=== PATIENT | female | born 1960 | race African-American/Black ===

== ENCOUNTER → 2020-05-08 15:57 | Outpatient (BNV) | payer OTHER, SELFPAY | PROVIDERS: PCP Internal Medicine; Visit Provider Internal Medicine | DX: D59.10 Autoimmune hemolytic anemia, unspecified (principal) | CPT/HCPCS: 38222; 99213; 99214 ==

== ENCOUNTER 2020-05-28 11:22 | Day surgery (SDC) | payer OTHER, SELFPAY ==
[2020-05-23 13:03] VITALS: BMI 44.9
[2020-05-27 08:50] VITALS: BMI 44.1
[2020-05-28 11:50] VITALS: BP 129/55; PULSE 66; RESP 18; TEMP 36.3; O2SAT 99
--- NOTE | 2020-05-28 12:43 | HO.ANESPROP2 ---
HPI - Anesthesia Eval Consult details Narrative: 59 yo female patient here for bone marrow biopsy PMFSH Past Medical History Medical History (Updated 05/28/20 @ 13:00 by Ariana Olvera) GERD (gastroesophageal reflux disease) IgG lambda monoclonal gammopathy Increased BMI Knee pain, right Macrocytic anemia Right knee meniscal tear Family History Family History Mother Colorectal cancer Father Lung cancer Brother Diabetes Sister Seizure disorder Family history of problems with anesthesia: No Surgical History Surgical History History of colonoscopy History of lumpectomy of left breast History of Problems with Anesthesia: No Social History Social History (Updated 05/28/20 @ 12:55 by Ariana Olvera) Alcohol intake: current Alcohol intake frequency: holidays/special occasions only Alcohol type: wine Smoking Status: Current every day smoker Tobacco Type: Cigarette Packs Per Day: 0.5 Cigarettes Per Day: 10 Years Smoked: 41 Smoked in Last 30 Days: Yes Use of substances other than those prescribed or required for medical reasons: No Advance Directives: No Advance Directives Information Provided: No Advance Directives on File: No Meds Allergies Allergy/AdvReac Type Severity Reaction Status Date / Time No Known Allergies Allergy Verified 05/27/20 09:00 [No Known Allergies*] Home Medications Medication Instructions Recorded Confirmed Type ferrous sulfate 7.5 mg PO DAILY 05/08/20 05/28/20 History folic acid 0.4 mg PO DAILY 05/08/20 05/28/20 History omeprazole 20 mg PO BID 05/08/20 05/28/20 History prednisone 40 mg PO DAILY 05/08/20 05/28/20 History Exam Exam Date and Time: May 28, 2020 1243 Height,Weight and Vital Signs: Height 5 ft 1 in Weight 106.141 kg Last Vital Signs Temp 97.4 F 05/28/20 11:50 Pulse 66 05/28/20 11:50 Resp 18 05/28/20 11:50 BP 129/55 L 05/28/20 11:50 Pulse Ox 99 05/28/20 11:50 Airway Mallampati Class: III TM Dist: >3cm Neck ROM: Full Heart: RRR WITH EXTRA BEATS EKG-SINUS ARRHYTHMIA. FREQUENT PACS Lungs: CTAB Assessment and Plan Assessment Anesthesia Assessment: Anesthesia Plan Discussed and Chart Reviewed Final Anesthetic Review NPO: Yes ASA Class: III Final Preanesthetic Review: No Changes in Pt Med Stat, Meds/Allgs Chart Reviewed and Anes Risks/Benef Reviewed Patient Risk: Intermediate Procedure Risk: Low Anesthetic Plan Anesthetic Plan: MAC: Disposition: Standard PACU
[2020-05-28] MEDS: Lactated Ringers 1,000 ML 50 ML IVCONT (13:06)
[2020-05-28 13:40] VITALS: BP 122/74; PULSE 66; RESP 12; TEMP 36.2; O2SAT 100
--- NOTE | 2020-05-28 13:45 | PM.HEMONCBM ---
Bone Marrow Aspiration - Bone Marrow Aspiration Procedure:: *Service Date: [05/28/20] Bone marrow aspiration/biopsy Pre Op Diagnosis:: Monoclonal gammopathy, hemolytic anemia Post Op Diagnosis:: Monoclonal gammopathy, hemolytic anemia Surgeon:: Negrita Viveros MD Anesthesia:: Mac and local anesthesia Consent:: Informed consent obtained from the patient for the procedure. Pros and cons of biopsy explained. The patient was willing to proceed with the procedure under monitored anesthesia. Procedure in Detail:: *Service Date: [f_Mis Current Date] *Procedure: [] *Pre Op Dx: [] *Post Op Dx: [] *Surgeon: [f_Current User] The patient was positioned prone and the left posterior superior iliac spine prepped and draped. Under aseptic precautions, 10 mL ml of 1% lidocaine used for local anesthesia. With the Jamshidi needle, 10 cc of aspirate and 1 cm core biopsy obtained without any complications. The patient tolerated the procedure well. Bandage was applied and patient was positioned on back for 10 to 15 minutes after the procedure. The patient was advised to call us if she develops any pain or swelling at the surgical site. Follow up in 2 weeks.
[2020-05-28 13:55] VITALS: BP 134/58; PULSE 66; RESP 14; O2SAT 99
[2020-05-28 14:10] VITALS: BP 129/73; PULSE 73; RESP 16; O2SAT 99
[2020-05-28] MEDS: Acetaminophen 325 MG TABLET 650 MG PO (14:17)
--- NOTE | 2020-05-28 14:40 | HO.POSTANES ---
Post Anesthesia Evaluation Post Anesthesia Evaluation Vital Signs: Vital Signs Temp Pulse Resp BP Pulse Ox 05/28/20 14:10 73 16 129/73 99 05/28/20 13:55 66 14 134/58 L 99 05/28/20 13:40 97.2 F 66 12 122/74 100 05/28/20 11:50 97.4 F 66 18 129/55 L 99 Anesthesia: Monitored Mental Status: Awake Pain Control: Satisfactory Nausea/Vomiting: None Hydration: Adequate Anesthesia-Related Issues: No Anes. Related Issues
[2020-05-28 15:08] LABS: Bone Marrow SEE SEPARATE REPORT
[2020-05-29 17:07] LABS: LLE Markers 23
[2020-05-30 08:58] LABS: LLE Sample Description SEE ABOVE
[2020-05-30 09:00] LABS: LLE Report Type SEE ABOVE
[2020-06-01 16:57] LABS: B Cell IGH Result Positive; Clinical Indication Not Provided
== END 2020-05-28 14:25 | disposition home or self-care (01) ==
PROVIDERS: PCP Internal Medicine; Visit Provider Internal Medicine
PROC: (CPT 38221; principal; 2020-05-28 13:00)
DX: D53.9 Nutritional anemia, unspecified (principal); D47.2 Monoclonal gammopathy; Z79.52 Long term (current) use of systemic steroids; Z79.899 Other long term (current) drug therapy; F17.210 Nicotine dependence, cigarettes, uncomplicated
CPT/HCPCS: 38222; 36415; 81261; 84999; 85097; 88184; 88185; 88189; 88237; 88264; 88271; 88275; 88305; 88307; 88311; 88313; 88342; 88344; J1100; J2250; J3010

== ENCOUNTER → 2020-08-22 10:35 | Outpatient (BNVA) | payer OTHER, SELFPAY | PROVIDERS: PCP Internal Medicine; Visit Provider Internal Medicine | DX: R06.02 Shortness of breath (principal); R07.2 Precordial pain; R03.0 Elevated blood-pressure reading, without diagnosis of hypertension; F17.200 Nicotine dependence, unspecified, uncomplicated | CPT/HCPCS: 93005 ==

== ENCOUNTER → 2020-10-02 07:56 | Outpatient (REF) | payer OTHER, SELFPAY ==
--- NOTE | ~2020-10-02 | NM_ITS ---
Myocardial perfusion study Indication: Shortness of breath evaluate for myocardial ischemia Technique: The patient was brought in for a Lexiscan perfusion study on 10/02/2020. Patient performed low-level exercise and was injected 0.4 mg of Lexiscan intravenously. Within a minute of injection, 40 mCi of sestamibi was given intravenously. Images were obtained using the SPECT gamma camera interlaced with the gating device. Images were obtained in supine position. Resting perfusion study was performed on 10/03/2020. Patient was administered 40 mCi of sestamibi intravenously at rest. Images were then obtained in supine position. Images obtained with and without CT attenuation. Total DLP 99 mGy-cm. Images were processed with the software and compared side to side in short axis, horizontal long axis and vertical long axis views. Findings: The stress perfusion study showed non attenuated images show normal uptake of radiotracer in all segments of LV myocardium. Attenuation corrected images show mildly reduced uptake in the apex of the LV myocardium. The gated study shows normal LV systolic function with calculated LVEF of 69%. LV cavity is normal in size. The gated study shows normal systolic wall thickening and contraction of segments. Resting study shows no change in perfusion in compared to stress perfusion study. Gating at rest reveals normal systolic wall motion with ejection fraction at 57%. The findings are consistent with normal myocardial perfusion. NM/NM cardiolite stress test Impression: 1. Myocardial perfusion imaging study shows normal myocardial perfusion 2. Gated LVEF is 69% 3. Transient ischemic dilatation not present EKG is nondiagnostic for ischemia
--- NOTE | 2020-10-02 08:00 | CA_ITS ---
Transthoracic Echocardiogram Patient (Last, First, Middle): Shelly Almendarez E Gender: Female Date of : 1960 Age: 60 Procedure Date: 10/02/2020 Procedure Type: Transthoracic Echocardiogram Location: OP Height: 154.94 cm Weight: 113.63 kg BSA: 2.08 m2 Heart Rate: bpm BP: 127 / 80 mmHg Valuation Consultant: Referring MD: Anatoliy Monzon MD Symptoms: R06.02 - Shortness of breath Study Quality: Fair ECG Rhythm: Sinus Conclusions: - The left ventricular systolic function is normal. The visually estimated ejection fraction is between 60-65%. - No obvious valvular pathology seen on this study. Findings Left Ventricle Normal left ventricular cavity size. There is mildly increased left ventricular wall thickness. The left ventricular systolic function is normal. The visually estimated ejection fraction is between 60-65%. There is no evidence of regional wall motion abnormalities. Diastolic function is normal for age. Right Ventricle Normal right ventricular cavity size and systolic function. Atria The left atrium is normal in size. The right atrium is normal in size. Aortic Valve There is a normal trileaflet aortic valve. There is no aortic valve stenosis. There is no aortic valve regurgitation. Mitral Valve The mitral valve appears normal. There is trace mitral valve regurgitation. There is no mitral valve stenosis. Pulmonic Valve The pulmonic valve was not well visualized. Tricuspid Valve Normal tricuspid valve structure. There is trace tricuspid valve regurgitation. The pulmonary artery systolic pressure is normal. Great Vessels The aortic annulus, sinuses of valsalva, and asc aorta are normal in size. Venous The inferior vena cava is normal in size and collapses greater than 50% with inspiration. Pericardium/Pleural There is no evidence of pericardial effusion. Prior Study Comparison No prior study available for comparison. Recommendations, Care & Conclusions No obvious valvular pathology seen on this study. Measurements 2D Linear Measurements IVSd: 1.11 0.6-0.9/0.6-1.0 cm LVIDd: 4.34 3.9-5.3/4.2-5.9 cm LVIDd Index: 2.09 2.4-3.2/2.2-3.1 cm/m2 LVIDs: 2.74 2.0-3.6 cm LVPWd: 1.05 0.7-1.1 cm Ao Root: 2.90 2.1-3.5 cm LA Diam: 4.10 2.7-3.8/3.0-4.0 cm LAIDs Index: 1.97 1.5-2.3 cm/m2 LV Mass: 200.59 67-162/88-224 g LV Mass Index: 96.44 43-95/49-115 g/m2 LVOT Diam: 2.00 3.0+(-)1.3 cm Mitral Valve MV VTI: 0.39 MV Pk Chetan: 1.16 MV Mn Chetan: 0.67 MV Pk Grad: 5.00 MV Mn Grad: 2.00 MV Pk E: 0.90 MV PK A: 0.89 MV Decel Time: 183.00 E/A: 1.00 E'Lateral: 11.90 E'Medial: 10.40 E/E' Med: 8.60 E/E' Lat: 7.50 PHT: 54.00 MVA PHT: 4.07 MVA Continuity: 1.91 Decel Kerr: 5.99 Aortic Valve AoV Pk Chetan: 1.63 AoV Mn Chetan: 0.99 AoV VTI: 0.33 AoV Pk Grad: 11.00 Aov Mn Grad: 5.00 AUTUMN Cont.VTI: 2.26 LVOT LVOT Pk Chetan: 1.08 LVOT Mn Chetan: 0.72 LVOT VTI: 0.24 LVOT Pk Grad: 5.00 LVOT Mn Grad: 3.00 LVOT Diam: 2.00 LVOT Area: 3.14 Diastolic Function MV Pk E: 0.90 MV Pk A: 0.89 E/A: 1.00 E'Medial: 10.40 E/E' Med: 8.60 E' Laterial: 11.90 E/E' Lat: 7.50 Tricuspid Valve TR Pk Chetan: 1.80 TR Pk Grad: 13.00 Great Vessels Aorta Ao Root-2D: 2.90 2.0-3.7 cm Ao Asc: 2.90 2.1-3.4 cm Pulmonary Valve PV Pk Chetan: 1.09 Peak PV Grad: 5.00 Updated in Other Vendor System with Status of Final Anatoliy Monzon MD electronically signed on 10/03/2020 12:18:58 PM with status of Final
--- NOTE | 2020-10-02 08:00 | CA_ITS ---
Acquisition Time: 2020-10-02 08:22:35 Total Exercise Time: 00:02:08 Test Indications: Dyspnea Medications: PREDNISONE OMEPRAZOLE IRON Protocol: RHIANNA Max HR: 113 BPM 70% of Pred: 161 BPM Max BP: 190/090 mmHG Max Work Load: 4.6 METS Pharmacological stress test using Lexiscan while sitting and kicking her feet. Pt tolerated well. Denies any anginal sx. EKG with PAC's before the injection, non-diagnostic for ischemia. Nuclear images to follow. Normotensive response to tewst. Test reviewed with Dr. Monzon. Pt's test switched to pharmacological as pt unable to walk on the treadmill d/t SOB. Pt asked to terminate the Rhianna protocol. test Referred By: Anatoliy Monzon Overread By: Raina Hameed NP
== END ==
LOC: HO.CARD 07:56
PROVIDERS: Visit Provider Internal Medicine
DX: R07.2 Precordial pain (principal); R06.02 Shortness of breath
CPT/HCPCS: 78452; 93016; 93017; 93018; 93306; A9500; J0280; J2785

== ENCOUNTER → 2020-10-15 15:01 | Outpatient (BNVA) | payer OTHER, SELFPAY | PROVIDERS: PCP Internal Medicine; Visit Provider Internal Medicine ==

== ENCOUNTER → 2021-03-13 15:04 | Outpatient (BNVA) | payer OTHER, SELFPAY | PROVIDERS: PCP Internal Medicine; Visit Provider Hospitalist ==

== ENCOUNTER 2021-04-01 16:02 | Outpatient (REF) | payer OTHER, SELFPAY ==
--- NOTE | 2021-04-01 17:38 | PFT_ITS ---
Forced vital capacity, FEV1, [id number] were normal. MVV slightly decreased, but improved to normal after bronchodilator therapy. Total lung capacity and residual volume normal. Diffusion capacity slightly decreased. CONCLUSION: Normal pulmonary function test. No evidence of obstructive or restrictive pulmonary disorder. Clinical correlation recommended. MD JACKIE Anand/MARIELENAL / [id number]
== END 2021-04-01 16:03 | disposition home or self-care (01) ==
LOC: HO.RESP 16:02
PROVIDERS: Visit Provider Hospitalist
DX: J44.9 Chronic obstructive pulmonary disease, unspecified (principal)
CPT/HCPCS: 94060; 94727; 94729

== ENCOUNTER 2021-04-11 15:39 | Outpatient (REF) | payer OTHER, SELFPAY ==
--- NOTE | ~2021-04-11 | CT_ITS ---
EXAMINATION: CT CHEST SCREENING CLINICAL INFORMATION: Current smoker. 42 year history. COMPARISON: Previous chest x-ray September 2019 TECHNIQUE: Multidetector volumetric CT imaging of the chest is performed without contrast using low dose technique. Additional 2D coronal and sagittal reformatted images and axial 3D maximum intensity projection (MIP) images are generated on the CT workstation. This CT examination was performed using dose optimization techniques as appropriate, variously including the following: *Automated exposure control *Adjustment of mA and/or kV according to patient size (this includes techniques or standardized protocols for targeted exams where dose is matched to indication/reason for exam; i.e. extremities or head) *Use of iterative reconstruction technique DLP: 109 mGy-cm FINDINGS: LUNGS: Exam is somewhat limited due to low dose film technique. There is a heterogeneous partially groundglass attenuation partially cystic lesion in the anterior segment of the right upper lobe. This measures 1.3 x 2 cm in AP and transverse dimension, axial image 106 series 6 and axial image 30 series 9. There is adjacent pleural thickening. There is an adjacent heterogeneous partially groundglass partially cystic more medial inferior lesion measuring 0.9 x 1.1 cm axial image 18 series 5. There is a adjacent more lateral and posterior heterogeneous predominantly groundglass attenuation or semisolid right upper lobe nodule measuring 5 x 6 mm axial image 105 series 6. There is a heterogeneous partially groundglass attenuation partially cystic superior segment left lower lobe nodule. This measures 1.4 x 2.1 cm axial image 148 series 6 and axial image 43 series 9. There is evidence of mild paraseptal emphysema. There is a 1 x 2 cm cyst in the left upper lobe axial image 30 series 5. MEDIASTINUM: The mediastinum is normal. PLEURA: There is no pleural effusion. No pleural mass or thickening. AXILLA: No lymphadenopathy. UPPER ABDOMEN: Unremarkable OSSEOUS STRUCTURES: There are degenerative changes of the spine. CT/CT lung screening IMPRESSION: Heterogeneous partially groundglass partially cystic lesions in the right upper and left lower lobes. ASSESSMENT: Lung-RADS category 3: Probably Benign RECOMMENDATION: Six-month low-dose chest CT follow-up recommended.
== END 2021-04-11 15:40 | disposition home or self-care (01) ==
LOC: HO.CT 15:39
PROVIDERS: PCP Internal Medicine; Visit Provider Physician Assistant Medical
DX: Z12.2 Encounter for screening for malignant neoplasm of respiratory organs (principal); F17.210 Nicotine dependence, cigarettes, uncomplicated
CPT/HCPCS: 71271; G0296

== ENCOUNTER → 2021-04-29 15:42 | Outpatient (BNVA) | payer OTHER, SELFPAY | PROVIDERS: PCP Internal Medicine; Visit Provider Hospitalist ==

== ENCOUNTER → 2021-07-17 15:11 | Outpatient (BNVA) | payer OTHER, SELFPAY | PROVIDERS: PCP Internal Medicine; Referring Provider Internal Medicine; Visit Provider Internal Medicine | DX: R06.02 Shortness of breath (principal); R03.0 Elevated blood-pressure reading, without diagnosis of hypertension; E66.01 Morbid (severe) obesity due to excess calories; F17.210 Nicotine dependence, cigarettes, uncomplicated; M79.89 Other specified soft tissue disorders; Z68.42 Body mass index [BMI] 45.0-49.9, adult | CPT/HCPCS: 93005 ==

== ENCOUNTER 2021-08-30 08:35 | Outpatient (REF) | payer OTHER, SELFPAY ==
[2021-09-01 12:45] LABS: PES - Abn Protein Band 1 0.3 g/dL (NONE DETECTED); Prot Elec - Albumin 4.3 g/dL (3.8-4.8); Prot Elec - Alpha1 0.4 g/dL (0.2-0.3); Prot Elec - Alpha2 0.5 g/dL (0.5-0.9); Prot Elec - Beta 1 0.4 g/dL (0.4-0.6); Prot Elec - Beta 2 0.3 g/dL (0.2-0.5); Prot Elec - Total Protein 7.8 g/dL (6.1-8.1)
[2021-09-01 19:06] LABS: Haptoglobin <8 mg/dL (43-212)
[2021-09-04 00:36] LABS: Kappa Light Chain, Free Serum 54.2 mg/L (3.3-19.4); Kappa/Lambda Lt Ch Free Ratio 0.64 (0.26-1.65); Lambda Light Chain, Free Serum 84.5 mg/L (5.7-26.3)
[2021-09-04 10:11] LABS: IgA 167 mg/dL (47-310); IgG 1684 mg/dL (600-1640); IgM 939 mg/dL (50-300)
== END 2021-08-30 08:36 | disposition home or self-care (01) ==
LOC: HO.LAB 08:35
PROVIDERS: PCP Internal Medicine; Visit Provider Internal Medicine
DX: D58.9 Hereditary hemolytic anemia, unspecified (principal)
CPT/HCPCS: 36415; 82232; 82784; 83010; 83521; 84165; 86334; 86880; 88184; 88185

== ENCOUNTER 2021-10-01 17:00 | Outpatient (REF) | payer OTHER, SELFPAY ==
[2021-10-01 17:10] LABS: MANUAL DIFF FLAG NO
[2021-10-01 17:25] LABS: Basophils Percent Auto 0.2 % (0-2); Eosinophils Absolute Auto 0.1 X10*3/uL (0.0-0.4); Eosinophils Percent Auto 1.4 % (0-4); Hematocrit 31.9 % (37.0-47.0); Hemoglobin 11.5 g/dl (12.0-16.0); Imm Gran Abs Auto 0.04 X10*3/uL (0.00-0.03); Imm Gran Pct Auto 0.6 % (0.0-0.4); Lymphocytes Absolute Auto 2.2 X10*3/uL (1.2-4.9); Mean Corpuscular HGB Conc 36.1 g/dl (31.0-35.0); Mean Corpuscular Hemoglobin 36.4 pg (27.0-33.0); Mean Corpuscular Volume 100.9 fL (80.0-98.0); Mean Platelet Volume 9.8 fL (9.4-12.3); Monocytes Absolute Auto 0.5 X10*3/uL (0.1-1.2); Monocytes Percent Auto 7.1 % (2-11); Neutrophils Absolute Auto 3.7 x10*3/uL (2.0-8.3); Neutrophils Percent Auto 56.7 % (45-73); Platelet Count 199 X10*3/uL (160-400); Red Blood Count 3.16 X10*6/uL (4.20-5.50); Red Cell Distribution Width 17.6 % (11.0-16.0); White Blood Count 6.6 X10*3/uL (4.8-10.8)
[2021-10-01 18:00] LABS: Alanine Aminotransferase 15 U/L (0-31); Albumin Level 4.1 g/dL (3.5-5.0); Alkaline Phosphatase 121 U/L (39-117); Anion Gap 12 (12-20); Aspartate Amino Transferase 15 U/L (5-31); Bilirubin Total 0.7 mg/dL (0.0-1.0); Blood Urea Nitrogen 12 mg/dL (9-16); Calcium 9.8 mg/dL (8.4-10.2); Carbon Dioxide 26 mmol/L (22-29); Chloride 105 mmol/L (96-108); Estimated Glomerular Filt Rate 45; Glucose Random 107 mg/dL (60-115); Potassium 4.2 mmol/L (3.3-5.1); Sodium 139 mmol/L (135-145)
== END 2021-10-01 17:01 | disposition home or self-care (01) ==
LOC: HO.LAB 17:00
PROVIDERS: PCP Internal Medicine; Visit Provider Internal Medicine
DX: D59.10 Autoimmune hemolytic anemia, unspecified (principal)
CPT/HCPCS: 36415; 80053; 85025

== ENCOUNTER 2021-10-17 15:10 | Outpatient (REF) | payer OTHER, SELFPAY ==
--- NOTE | ~2021-10-17 | CT_ITS ---
EXAMINATION: CT CHEST SCREENING CLINICAL INFORMATION: Former smoker. COMPARISON: CT lungs 04/11/2021. TECHNIQUE: Multidetector volumetric CT imaging of the chest is performed without contrast using low dose technique. Additional 2D coronal and sagittal reformatted images and axial 3D maximum intensity projection (MIP) images are generated on the CT workstation. This CT examination was performed using dose optimization techniques as appropriate, variously including the following: *Automated exposure control *Adjustment of mA and/or kV according to patient size (this includes techniques or standardized protocols for targeted exams where dose is matched to indication/reason for exam; i.e. extremities or head) *Use of iterative reconstruction technique DLP: 73 mGy-cm FINDINGS: LUNGS: The lungs are hyperinflated with mild patchy atelectasis or scarring right upper lobe anterior segment and superior segment left lower lobe. The cystic part is not well-visualized. There is a second area of focal ill-defined density right upper lobe anterior segment measuring approximately 7 mm with no cystic component seen on axial image 19/5. There is a subtle groundglass density 5 mm right upper lobe laterally suboptimally visualized on axial image 15/5. Previously seen patchy groundglass density in the left lower lobe superior segment is ill-defined and probably measures 1.7 x 1.2 cm. MEDIASTINUM: The thyroid lobes are enlarged but symmetrical. The central trachea and the bronchi are widely patent. Heart size and the great vessels are normal caliber. No pericardial effusion seen. No abnormal lymphadenopathy. PLEURA: There is no pleural effusion. No pleural mass or thickening. AXILLA: No lymphadenopathy. UPPER ABDOMEN: Visualized liver, spleen, pancreas and bilateral adrenal glands unremarkable. OSSEOUS STRUCTURES: No lytic or sclerotic process seen. CT/CT lung screen follow up IMPRESSION: Hyperinflated lungs with no acute pneumonic consolidation. Previously seen cystic lesions surrounding groundglass attenuation shows more appearance of groundglass density in right upper lobe and left lower lobe superior segments. No cystic component seen at this time. The groundglass attenuation left lower lobe superior segment measures 1.7 cm and was likely the same size on the previous study even though measured 1.4 cm on the last CT. ASSESSMENT: Lung-RADS category 2: Benign. RECOMMENDATION: Low-dose annual CT chest follow-up.
== END 2021-10-17 15:11 | disposition home or self-care (01) ==
LOC: HO.CT 15:10
PROVIDERS: PCP Internal Medicine; Visit Provider Physician Assistant Medical
DX: Z12.2 Encounter for screening for malignant neoplasm of respiratory organs (principal); Z87.891 Personal history of nicotine dependence
CPT/HCPCS: 71250

== ENCOUNTER → 2021-10-21 15:09 | Outpatient (BNVA) | payer OTHER, SELFPAY | PROVIDERS: PCP Internal Medicine; Visit Provider Hospitalist | DX: J44.9 Chronic obstructive pulmonary disease, unspecified (principal) ==

== ENCOUNTER 2021-10-30 15:58 | Outpatient (REF) | payer OTHER, SELFPAY ==
[2021-10-30 16:12] LABS: MANUAL DIFF FLAG NO
[2021-10-30 16:21] LABS: Eosinophils Absolute Auto 0.1 X10*3/uL (0.0-0.4); Eosinophils Percent Auto 2.1 % (0-4); Hematocrit 31.5 % (37.0-47.0); Hemoglobin 10.7 g/dl (12.0-16.0); Imm Gran Abs Auto 0.02 X10*3/uL (0.00-0.03); Imm Gran Pct Auto 0.3 % (0.0-0.4); Lymphocytes Absolute Auto 1.8 X10*3/uL (1.2-4.9); Lymphocytes Percent Auto 31.5 % (20-40); Mean Corpuscular Hemoglobin 33.4 pg (27.0-33.0); Mean Corpuscular Volume 98.4 fL (80.0-98.0); Mean Platelet Volume 9.6 fL (9.4-12.3); Monocytes Absolute Auto 0.4 X10*3/uL (0.1-1.2); Monocytes Percent Auto 6.5 % (2-11); Neutrophils Absolute Auto 3.5 x10*3/uL (2.0-8.3); Neutrophils Percent Auto 59.6 % (45-73); Platelet Count 187 X10*3/uL (160-400); Red Cell Distribution Width 16.2 % (11.0-16.0); White Blood Count 5.8 X10*3/uL (4.8-10.8)
[2021-10-30 16:45] LABS: Alanine Aminotransferase 11 U/L (0-31); Alkaline Phosphatase 119 U/L (39-117); Anion Gap 9 (12-20); Aspartate Amino Transferase 16 U/L (5-31); Bilirubin Total 0.6 mg/dL (0.0-1.0); Blood Urea Nitrogen 13 mg/dL (9-16); Calcium 9.7 mg/dL (8.4-10.2); Carbon Dioxide 27 mmol/L (22-29); Chloride 107 mmol/L (96-108); Estimated Glomerular Filt Rate 52; Glucose Random 100 mg/dL (60-115); Potassium 4.2 mmol/L (3.3-5.1); Sodium 139 mmol/L (135-145); Total Protein 7.7 g/dL (6.5-8.0)
== END 2021-10-30 15:59 | disposition home or self-care (01) ==
LOC: HO.LAB 15:58
PROVIDERS: Absent Provider Hospitalist; PCP Internal Medicine; Visit Provider Internal Medicine
DX: D58.9 Hereditary hemolytic anemia, unspecified (principal)
CPT/HCPCS: 36415; 80053; 85025

== ENCOUNTER 2021-12-15 16:47 | Outpatient (REF) | payer OTHER, SELFPAY ==
[2021-12-15 16:59] LABS: Hemoglobin 10.8 g/dl (12.0-16.0); Mean Corpuscular HGB Conc 32.7 g/dl (31.0-35.0); Mean Corpuscular Hemoglobin 32.2 pg (27.0-33.0); Mean Corpuscular Volume 98.5 fL (80.0-98.0); Mean Platelet Volume 9.2 fL (9.4-12.3); Platelet Count 181 X10*3/uL (160-400); Red Blood Count 3.35 X10*6/uL (4.20-5.50); Red Cell Distribution Width 15.4 % (11.0-16.0); White Blood Count 6.8 X10*3/uL (4.8-10.8)
[2021-12-15 17:19] LABS: Alanine Aminotransferase 12 U/L (0-31); Albumin Level 4.2 g/dL (3.5-5.0); Alkaline Phosphatase 111 U/L (39-117); Anion Gap 14 (12-20); Aspartate Amino Transferase 16 U/L (5-31); Bilirubin Total 0.7 mg/dL (0.0-1.0); Blood Urea Nitrogen 16 mg/dL (9-16); Calcium 9.5 mg/dL (8.4-10.2); Carbon Dioxide 24 mmol/L (22-29); Chloride 107 mmol/L (96-108); Estimated Glomerular Filt Rate 49; Glucose Random 107 mg/dL (60-115); Potassium 4.6 mmol/L (3.3-5.1); Sodium 140 mmol/L (135-145)
== END 2021-12-15 16:48 | disposition home or self-care (01) ==
LOC: HO.LAB 16:47
PROVIDERS: PCP Internal Medicine; Visit Provider Internal Medicine
DX: D59.10 Autoimmune hemolytic anemia, unspecified (principal)
CPT/HCPCS: 36415; 80053; 85027

== ENCOUNTER 2022-04-16 17:08 | Outpatient (REF) | payer OTHER, SELFPAY ==
[2022-04-16 17:20] LABS: MANUAL DIFF FLAG NO
[2022-04-16 17:55] LABS: Lactate Dehydrogenase 424 U/L (122-220)
[2022-04-16 18:14] LABS: Basophils Percent Auto 0.3 % (0-2); Eosinophils Absolute Auto 0.1 X10*3/uL (0.0-0.4); Eosinophils Percent Auto 1.9 % (0-4); Hematocrit 31.6 % (37.0-47.0); Imm Gran Abs Auto 0.03 X10*3/uL (0.00-0.03); Imm Gran Pct Auto 0.4 % (0.0-0.4); Lymphocytes Absolute Auto 2.2 X10*3/uL (1.2-4.9); Lymphocytes Percent Auto 31.8 % (20-40); Mean Corpuscular HGB Conc 31.6 g/dl (31.0-35.0); Mean Corpuscular Hemoglobin 30.3 pg (27.0-33.0); Mean Corpuscular Volume 95.8 fL (80.0-98.0); Mean Platelet Volume 9.7 fL (9.4-12.3); Monocytes Absolute Auto 0.4 X10*3/uL (0.1-1.2); Neutrophils Absolute Auto 4.1 x10*3/uL (2.0-8.3); Neutrophils Percent Auto 59.6 % (45-73); Platelet Count 198 X10*3/uL (160-400); White Blood Count 6.8 X10*3/uL (4.8-10.8)
== END 2022-04-16 17:09 | disposition home or self-care (01) ==
LOC: HO.LAB 17:08
PROVIDERS: PCP Internal Medicine; Visit Provider Internal Medicine
DX: D59.10 Autoimmune hemolytic anemia, unspecified (principal)
CPT/HCPCS: 36415; 83615; 85025

== ENCOUNTER → 2022-11-05 15:28 | Outpatient (BNVA) | payer OTHER, SELFPAY | PROVIDERS: PCP Internal Medicine; Visit Provider Hospitalist | DX: Z13.89 Encounter for screening for other disorder (principal) ==

== ENCOUNTER 2023-01-25 09:06 | Outpatient (AMB) | payer OTHER, SELFPAY ==
--- NOTE | 2023-01-25 09:08 | MHC.PC.OV ---
Vital Signs 01/25/23 09:10 Height 5 ft 2 in Weight 228 lb 2 oz BMI 41.7 BP 130/70 Blood Pressure Location Lt brachial Position Sitting Pulse 65 Pulse Source Pulse Oximeter Pulse Oximetry (%) 99 Oxygen Delivery Method Room Air Intake Visit Reasons: headaches Intake Note: Patient is here to follow up on Headaches. Ongoing for the last three weeks, otc not helping. Senior Director Creative Services Required: No Spindle Maker: Not Required per policy Accompanied by: Self / Same As Patient Allergies No Known Allergies [No Known Allergies*] Allergy (Verified 01/25/23 09:10) Medication List - Last Reconciled 01/25/23 by Donald Rothman MD albuterol sulfate 2.5 mg (3 mL) inhalation Q6H PRN 30 days albuterol sulfate 90 mcg/actuation 2 puffs inhalation Q6H PRN benzonatate 200 mg PO BID PRN 30 days ferrous sulfate 325 mg PO DAILY srsninnofsc-ouqeqvjjm-jyqpljig 100-62.5-25 mcg (Trelegy Ellipta) 1 inh inhalation DAILY 30 days folic acid 1 mg PO DAILY furosemide (Lasix) 20 mg PO DAILY 3 days omeprazole 20 mg PO BID umeclidinium-vilanterol 62.5-25 mcg/actuation (Anoro Ellipta) 1 inh inhalation DAILY Tobacco use date assessed: 01/25/23 Dental Screening Dental Screen Date: 01/25/23 Did you have a dental visit in the last 12 months?: No Did you have a dental problem in the last 6 months where you did not have access to dental care?: No Was dental information given to patient?: No HPI headaches HPI Details 2 weeks right sided headache PFSH Medical History (Updated 01/25/23 @ 09:24 by Donald Rothman MD) AIHA (autoimmune hemolytic anemia) Asthma-COPD overlap syndrome COPD (chronic obstructive pulmonary disease) GERD (gastroesophageal reflux disease) IgG lambda monoclonal gammopathy (~2006) Macrocytic anemia Morbid obesity Multiple subsolid lung nodules greater than 6 mm in diameter Obesity Personal history of nicotine dependence Pneumonitis Right knee meniscal tear Tobacco dependence Surgical History History of bone marrow biopsy (~2019) History of colonoscopy (~2016) History of lumpectomy of left breast (~2017) Family History (Updated 01/25/23 @ 09:08 by LAURYN Diez) Mother Colorectal cancer Father Lung cancer Brother Diabetes Sister Seizure disorder Other Mental health disorder Social History Household Members: Spouse Housing: House Are you a primary care management assistant to a significant other at home: No Do you presently have visiting nurse or other home services: No Alcohol intake: current Alcohol intake frequency: holidays/special occasions only Alcohol type: wine Patient Tobacco Use Status: Current everyday Tobacco user Tobacco use type: Cigarette Cigarette Packs Per Day: 0.5 Cigarettes Per Day: 10 Years Smoked: 44 (onset 17, 1/2-1ppd x 44yrs, 30pyh) e-Cigarette/Vaping Use: Never Used Second Hand Smoke Exposure: Yes service: No Current occupational status: employed Cognitive needs: No Hearing needs: No Vision needs: Yes (glasses) Questionnaire PHQ-9 Over the last 2 weeks, how often have you been bothered by any of the following problems? 1. Little interest or pleasure in doing things: not at all 2. Feeling down, depressed, or hopeless: not at all 3. Trouble falling or staying asleep, or sleeping too much: not at all 4. Feeling tired or having little energy: not at all 5. Poor appetite or overeating: not at all 6. Feeling bad about yourself - or that you are a failure or have let yourself or your family down: not at all 7. Trouble concentrating on things, such as reading the newspaper or watching television: not at all 8. Moving or speaking so slowly that other people could have noticed. Or the opposite - being so fidgety or restless that you have been moving around a lot more than usual: not at all 9. Thoughts that you would be better off or of hurting yourself in some way: not at all Total score: 0 Depression Screening Interpretation: Negative 72796 - PHQ-9 Billing: Yes Source: Developed by Drs. Uche Banegas, Leyda Valentin, Vijay Mcmillan and colleagues, with an educational jim from [employer]. Thrive Questionnaire Date Thrive assessed: 01/25/23 I am a: Patient What is your living situation today?: I have a steady place to live Within the past 12 months, did the food you bought not last and you didn't have the money to get more?: Never true Within the past 12 months, did you worry whether your food would run out before you got money to buy more?: Never true Do you have trouble paying for medicines?: No Do you have trouble getting transportation to medical appointments?: No Do you have trouble paying your heating and electricity bill?: No Do you have trouble taking care of your child, family member or friend?: No Do you have trouble with day-to-day activities such as bathing, preparing meals, shopping, managing finances, etc.?: No Are you currently unemployed and looking for a job?: No Are you interested in more education?: No Currently or been in a relationship where the following occur: no concerns reported AUDIT C Alcohol Use Questionnaire (AUDIT-C) 1. How often do you have a drink containing alcohol?: Never Total Score: 0 JENNIE-7 AMB Questionnaire JENNIE-7 Date JENNIE - 7 assessed: 01/25/23 Feeling nervous, anxious, or on edge: 0 = Not at all Not being able to stop or control worryin = Not at all Worrying too much about different things: 0 = Not at all Trouble relaxin = Not at all Being so restless that it is hard to sit still: 0 = Not at all Becoming easily annoyed or irritable: 0 = Not at all Feeling afraid as if something awful might happen: 0 = Not at all Total JENNIE-7 score (0-4 normal; 5-9 mild; 10-14 moderate; 15-21 severe): 0 Source: Developed by Drs. Uche Banegas, Leyda Valentin, Vijay Mcmillan and colleagues, with an educational jim from [employer]. JENNIE-7 Assessment Billing JENNIE-7 Assessment Tool: JENNIE-7 Assessment 68494 Review of Systems Const Denies chills, Reports headache(s) and Denies weight loss ENT Reports headache(s) Card Denies chest pain, Denies syncope, Denies irregular heart rhythm and Denies dyspnea Resp Denies chest congestion, Denies cough and Denies dyspnea GI Denies abdominal pain, Denies change in stool character, Denies nausea and Denies vomiting Musc Denies deformity and Denies joint swelling Neuro Denies syncope and Reports headache(s) Physical exam (Primary Care) Vital Signs: Last Vital Signs Pulse 65 01/25/23 09:10 BP 130/70 01/25/23 09:10 Pulse Ox 99 01/25/23 09:10 Oxygen Delivery Method Room Air 01/25/23 09:10 BMI result Body Mass Index 41.7 morbid obesity BMI Assessment/Plan discussion: High BMI High, discussed plan: lifestyle, weight reduction, dietary and physical activity Tobacco/Smoking Status: Tobacco use Status Tobacco use date assessed 01/25/23 01/25/23 09:15 Patient Tobacco Use Status Current everyday Tobacco 01/25/23 09:15 Tobacco use type Cigarette 01/25/23 09:15 e-Cigarette/Vaping Use Never Used 01/25/23 09:15 PHQ-9: PHQ-9 Score PHQ-9: Total score 0 01/25/23 09:15 Depression Screening Interpretation: Negative Thrive Assessment: Date of Thrive Assessment Date Thrive assessed 01/25/23 01/25/23 09:15 Currently or been in a relationship where the following occur: no concerns reported Const General: cooperative, healthy appearing and comfortable Resp Auscultation: clear to auscultation bilaterally Cardio Jugular venous distension: no JVD Rate: regular rate Rhythm: regular rhythm Assessment and Plan Assessment & Plan (1) Sudden onset unilateral headache: Code(s): R51.9 - Headache, unspecified Orders: Orders Basic Metabolic Panel Today E86.0 - Dehydration Complete Blood Count Auto Diff Today D64.9 - Anemia, unspecified CT head/brain wo IV con Today R51.9 - Headache, unspecified Medications: New meloxicam 15 mg PO DAILY 30 tabs 0RF Patient Instructions: ct labs Coding Level of Care Code Est Pt Level 3 (78617) Diagnoses Sudden onset unilateral headache R51.9 Additional Codes JENNIE-7 Assessment Billing - JENNIE-7 Assessment Tool: JENNIE-7 Assessment [id number] ([id number])
[2023-01-25 09:10] VITALS: BP 130/70; PULSE 65; O2SAT 99; BMI 41.7
== END 2023-01-25 10:10 | disposition home or self-care (01) ==
PROVIDERS: PCP Internal Medicine; Visit Provider Internal Medicine
DX: R51.9 Headache, unspecified (principal)
CPT/HCPCS: 99213

== ENCOUNTER 2023-01-25 09:26 | Outpatient (REF) | payer OTHER, SELFPAY ==
[2023-01-25 09:48] LABS: MANUAL DIFF FLAG NO
[2023-01-25 10:29] LABS: Basophils Percent Auto 0.3 % (0-2); Eosinophils Absolute Auto 0.1 X10*3/uL (0.0-0.4); Eosinophils Percent Auto 1.9 % (0-4); Hematocrit 27.1 % (37.0-47.0); Hemoglobin 9.4 g/dl (12.0-16.0); Imm Gran Abs Auto 0.04 X10*3/uL (0.00-0.03); Imm Gran Pct Auto 0.6 % (0.0-0.4); Lymphocytes Absolute Auto 2.1 X10*3/uL (1.2-4.9); Lymphocytes Percent Auto 33.6 % (20-40); Mean Corpuscular Hemoglobin 38.2 pg (27.0-33.0); Mean Platelet Volume 9.8 fL (9.4-12.3); Monocytes Absolute Auto 0.4 X10*3/uL (0.1-1.2); Monocytes Percent Auto 6.1 % (2-11); Neutrophils Absolute Auto 3.6 x10*3/uL (2.0-8.3); Neutrophils Percent Auto 57.5 % (45-73); Platelet Count 199 X10*3/uL (160-400); Red Blood Count 2.46 X10*6/uL (4.20-5.50); Red Cell Distribution Width 21.3 % (11.0-16.0); White Blood Count 6.3 X10*3/uL (4.8-10.8)
[2023-01-25 10:31] LABS: Anion Gap 12 (12-20); Blood Urea Nitrogen 16 mg/dL (9-16); Calcium 9.5 mg/dL (8.4-10.2); Carbon Dioxide 24 mmol/L (22-29); Chloride 108 mmol/L (96-108); Estimated Glomerular Filt Rate 48; Glucose Random 101 mg/dL (60-115); Potassium 4.4 mmol/L (3.3-5.1); Sodium 140 mmol/L (135-145)
[2023-01-25 10:33] LABS: Mean Corpuscular Volume 110.2 fL (80.0-98.0)
[2023-01-25 10:34] LABS: Mean Corpuscular HGB Conc 34.7 g/dl (31.0-35.0)
== END 2023-01-25 09:27 | disposition home or self-care (01) ==
LOC: HO.LAB 09:26
PROVIDERS: PCP Internal Medicine; Visit Provider Internal Medicine
DX: E86.0 Dehydration (principal); D64.9 Anemia, unspecified
CPT/HCPCS: 36415; 80048; 85025

== ENCOUNTER 2023-02-08 08:32 | Outpatient (REF) | payer OTHER, SELFPAY ==
--- NOTE | ~2023-02-08 | CT_ITS ---
EXAMINATION: CT HEAD WITHOUT CONTRAST CLINICAL INFORMATION: Headaches. COMPARISON: None. TECHNIQUE: Contiguous axial imaging was performed from the skullbase to vertex without intravenous administration of contrast. This CT examination was performed using dose optimization techniques as appropriate, variously including the following: *Automated exposure control *Adjustment of mA and/or kV according to patient size (this includes techniques or standardized protocols for targeted exams where dose is matched to indication/reason for exam; i.e. extremities or head) *Use of iterative reconstruction technique DLP: 807 mGy-cm. FINDINGS: There is no evidence of acute intracranial hemorrhage or territorial infarction. No abnormal mass effect or midline shift is seen. Hawkins to white matter differentiation is well preserved. No extra-axial fluid collections are identified. Incidental scott cisterna magna noted in the posterior fossa. The ventricles are normal in size. There is no abnormal attenuation within the brain parenchyma. The osseous structures and soft tissues are normal. The mastoid air cells and visualized portions of the paranasal sinuses are well aerated. The maxillary sinuses are incidentally hypoplastic. CT/CT head/brain wo IV con IMPRESSION: No acute intracranial pathology.
== END 2023-02-08 08:33 | disposition home or self-care (01) ==
LOC: HO.CT 08:32
PROVIDERS: PCP Internal Medicine; Visit Provider Internal Medicine
DX: R51.9 Headache, unspecified (principal)
CPT/HCPCS: 70450

== ENCOUNTER 2023-10-30 10:50 | Outpatient (REF) | payer OTHER, SELFPAY ==
[2023-10-30 13:08] LABS: HBS Num1 2.63 mIU/mL (0-7.99); HBc Num1 0.12 S/CO (0.00-0.79); Hepatitis B Core Antibody Nonreactive (Nonreactive); Hepatitis B Surface Antigen Negative (Negative); ~Hepatitis B Surface Antibody NONREACTIVE (Nonreactive)
== END 2023-10-30 10:51 | disposition home or self-care (01) ==
LOC: HO.LAB 10:50
PROVIDERS: Visit Provider Internal Medicine
DX: D58.9 Hereditary hemolytic anemia, unspecified (principal)
CPT/HCPCS: 36415; 86704; 86706; 86880; 87340

== ENCOUNTER 2023-11-17 09:04 | Outpatient (REF) | payer OTHER, SELFPAY ==
[2023-11-17 09:24] LABS: MANUAL DIFF FLAG NO
[2023-11-17 09:51] LABS: Alanine Aminotransferase 8 U/L (0-31); Albumin Level 4.1 g/dL (3.5-5.0); Alkaline Phosphatase 103 U/L (39-117); Anion Gap 11 (12-20); Aspartate Amino Transferase 16 U/L (5-31); Bilirubin Total 0.7 mg/dL (0.0-1.0); Blood Urea Nitrogen 16 mg/dL (9-16); Calcium 9.8 mg/dL (8.4-10.2); Carbon Dioxide 23 mmol/L (22-29); Chloride 110 mmol/L (96-108); Estimated Glomerular Filt Rate 58; Glucose Random 100 mg/dL (60-115); Potassium 4.3 mmol/L (3.3-5.1); Sodium 140 mmol/L (135-145)
[2023-11-17 09:59] LABS: Basophils Percent Auto 0.1 % (0-2); Eosinophils Absolute Auto 0.1 X10*3/uL (0.0-0.4); Eosinophils Percent Auto 0.7 % (0-4); Hematocrit 24.6 % (37.0-47.0); Hemoglobin 8.9 g/dl (12.0-16.0); Imm Gran Abs Auto 0.05 X10*3/uL (0.00-0.03); Imm Gran Pct Auto 0.7 % (0.0-0.4); Lymphocytes Absolute Auto 1.9 X10*3/uL (1.2-4.9); Lymphocytes Percent Auto 28.3 % (20-40); Mean Corpuscular HGB Conc 36.2 g/dl (31.0-35.0); Mean Corpuscular Hemoglobin 40.8 pg (27.0-33.0); Mean Platelet Volume 9.7 fL (9.4-12.3); Monocytes Absolute Auto 0.4 X10*3/uL (0.1-1.2); Monocytes Percent Auto 5.7 % (2-11); Neutrophils Absolute Auto 4.4 x10*3/uL (2.0-8.3); Neutrophils Percent Auto 64.5 % (45-73); Platelet Count 200 X10*3/uL (160-400); Red Blood Count 2.18 X10*6/uL (4.20-5.50); Red Cell Distribution Width 23.1 % (11.0-16.0); White Blood Count 6.9 X10*3/uL (4.8-10.8)
[2023-11-17 10:01] LABS: Mean Corpuscular Volume 112.8 fL (80.0-98.0)
[2023-11-17 10:11] LABS: HBS Num1 2.77 mIU/mL (0-7.99); HBc Num1 0.13 S/CO (0.00-0.79); HBsAGNum1 0.21 S/CO (0.00-0.99); Hepatitis B Core Antibody Nonreactive (Nonreactive); Hepatitis B Surface Antigen Negative (Negative); ~Hepatitis B Surface Antibody NONREACTIVE (Nonreactive)
== END 2023-11-17 09:05 | disposition home or self-care (01) ==
LOC: HO.LAB 09:04
PROVIDERS: PCP Internal Medicine; Visit Provider Internal Medicine
DX: D59.10 Autoimmune hemolytic anemia, unspecified (principal)
CPT/HCPCS: 36415; 80053; 85025; 86704; 86706; 87340

== ENCOUNTER 2023-11-24 16:40 | Outpatient (REF) | payer OTHER, SELFPAY ==
[2023-11-24 16:50] LABS: MANUAL DIFF FLAG NO
[2023-11-24 17:06] LABS: Alanine Aminotransferase 9 U/L (0-31); Albumin Level 4.2 g/dL (3.5-5.0); Alkaline Phosphatase 104 U/L (39-117); Anion Gap 13 (12-20); Aspartate Amino Transferase 13 U/L (5-31); Bilirubin Total 0.5 mg/dL (0.0-1.0); Blood Urea Nitrogen 13 mg/dL (9-16); Calcium 9.7 mg/dL (8.4-10.2); Carbon Dioxide 26 mmol/L (22-29); Chloride 108 mmol/L (96-108); Estimated Glomerular Filt Rate 48; Glucose Random 96 mg/dL (60-115); Potassium 4.1 mmol/L (3.3-5.1); Sodium 143 mmol/L (135-145)
[2023-11-24 17:37] LABS: Basophils Percent Auto 0.3 % (0-2); Eosinophils Absolute Auto 0.1 X10*3/uL (0.0-0.4); Hematocrit 29.8 % (37.0-47.0); Hemoglobin 10.2 g/dl (12.0-16.0); Imm Gran Abs Auto 0.02 X10*3/uL (0.00-0.03); Imm Gran Pct Auto 0.3 % (0.0-0.4); Lymphocytes Absolute Auto 1.7 X10*3/uL (1.2-4.9); Lymphocytes Percent Auto 25.6 % (20-40); Mean Corpuscular HGB Conc 34.2 g/dl (31.0-35.0); Mean Corpuscular Hemoglobin 36.3 pg (27.0-33.0); Mean Platelet Volume 9.5 fL (9.4-12.3); Monocytes Absolute Auto 0.4 X10*3/uL (0.1-1.2); Monocytes Percent Auto 6.4 % (2-11); Neutrophils Absolute Auto 4.3 x10*3/uL (2.0-8.3); Neutrophils Percent Auto 65.4 % (45-73); Platelet Count 228 X10*3/uL (160-400); Red Blood Count 2.81 X10*6/uL (4.20-5.50); Red Cell Distribution Width 19.4 % (11.0-16.0); White Blood Count 6.6 X10*3/uL (4.8-10.8)
== END 2023-11-24 16:41 | disposition home or self-care (01) ==
LOC: HO.LAB 16:40
PROVIDERS: PCP Internal Medicine; Visit Provider Internal Medicine
DX: D58.9 Hereditary hemolytic anemia, unspecified (principal)
CPT/HCPCS: 36415; 80053; 85025

== ENCOUNTER 2023-12-01 13:42 | Outpatient (REF) | payer OTHER, SELFPAY ==
[2023-12-01 14:09] LABS: MANUAL DIFF FLAG NO
[2023-12-01 14:33] LABS: Alanine Aminotransferase 11 U/L (0-31); Alkaline Phosphatase 104 U/L (39-117); Anion Gap 11 (12-20); Aspartate Amino Transferase 15 U/L (5-31); Bilirubin Total 0.6 mg/dL (0.0-1.0); Blood Urea Nitrogen 12 mg/dL (9-16); Calcium 9.6 mg/dL (8.4-10.2); Carbon Dioxide 24 mmol/L (22-29); Chloride 108 mmol/L (96-108); Estimated Glomerular Filt Rate > 60; Glucose Random 94 mg/dL (60-115); Potassium 4.1 mmol/L (3.3-5.1); Sodium 139 mmol/L (135-145); Total Protein 7.6 g/dL (6.5-8.0)
[2023-12-01 14:41] LABS: Basophils Percent Auto 0.3 % (0-2); Eosinophils Absolute Auto 0.1 X10*3/uL (0.0-0.4); Eosinophils Percent Auto 1.4 % (0-4); Hematocrit 31.2 % (37.0-47.0); Hemoglobin 10.3 g/dl (12.0-16.0); Imm Gran Abs Auto 0.03 X10*3/uL (0.00-0.03); Imm Gran Pct Auto 0.5 % (0.0-0.4); Lymphocytes Absolute Auto 1.8 X10*3/uL (1.2-4.9); Lymphocytes Percent Auto 28.9 % (20-40); Mean Platelet Volume 9.7 fL (9.4-12.3); Monocytes Absolute Auto 0.3 X10*3/uL (0.1-1.2); Neutrophils Absolute Auto 4.1 x10*3/uL (2.0-8.3); Neutrophils Percent Auto 63.9 % (45-73); Platelet Count 210 X10*3/uL (160-400); Red Blood Count 3.03 X10*6/uL (4.20-5.50); Red Cell Distribution Width 16.1 % (11.0-16.0); White Blood Count 6.4 X10*3/uL (4.8-10.8)
== END 2023-12-01 13:43 | disposition home or self-care (01) ==
LOC: HO.LAB 13:42
PROVIDERS: PCP Internal Medicine; Visit Provider Internal Medicine
DX: D59.10 Autoimmune hemolytic anemia, unspecified (principal)
CPT/HCPCS: 36415; 80053; 85025

== ENCOUNTER 2023-12-25 10:00 | Outpatient (REF) | payer OTHER, SELFPAY ==
[2023-12-25 10:10] LABS: MANUAL DIFF FLAG NO
[2023-12-25 10:37] LABS: Basophils Percent Auto 0.3 % (0-2); Eosinophils Absolute Auto 0.1 X10*3/uL (0.0-0.4); Eosinophils Percent Auto 1.8 % (0-4); Hemoglobin 11.6 g/dl (12.0-16.0); Imm Gran Abs Auto 0.04 X10*3/uL (0.00-0.03); Imm Gran Pct Auto 0.6 % (0.0-0.4); Lymphocytes Absolute Auto 1.6 X10*3/uL (1.2-4.9); Lymphocytes Percent Auto 23.9 % (20-40); Mean Corpuscular HGB Conc 35.2 g/dl (31.0-35.0); Mean Corpuscular Hemoglobin 35.7 pg (27.0-33.0); Mean Corpuscular Volume 101.5 fL (80.0-98.0); Mean Platelet Volume 9.6 fL (9.4-12.3); Monocytes Absolute Auto 0.4 X10*3/uL (0.1-1.2); Monocytes Percent Auto 6.3 % (2-11); Neutrophils Absolute Auto 4.6 x10*3/uL (2.0-8.3); Neutrophils Percent Auto 67.1 % (45-73); Platelet Count 222 X10*3/uL (160-400); Red Blood Count 3.25 X10*6/uL (4.20-5.50); Red Cell Distribution Width 16.4 % (11.0-16.0); White Blood Count 6.8 X10*3/uL (4.8-10.8)
[2023-12-25 10:43] LABS: Alanine Aminotransferase 12 U/L (0-31); Albumin Level 4.3 g/dL (3.5-5.0); Alkaline Phosphatase 121 U/L (39-117); Anion Gap 11 (12-20); Aspartate Amino Transferase 16 U/L (5-31); Bilirubin Total 0.5 mg/dL (0.0-1.0); Blood Urea Nitrogen 14 mg/dL (9-16); Calcium 10.2 mg/dL (8.4-10.2); Carbon Dioxide 26 mmol/L (22-29); Chloride 108 mmol/L (96-108); Estimated Glomerular Filt Rate 53; Glucose Random 100 mg/dL (60-115); Potassium 4.1 mmol/L (3.3-5.1); Sodium 141 mmol/L (135-145); Total Protein 8.2 g/dL (6.5-8.0)
== END 2023-12-25 10:01 | disposition home or self-care (01) ==
LOC: HO.LAB 10:00
PROVIDERS: PCP Internal Medicine; Visit Provider Internal Medicine
DX: D59.10 Autoimmune hemolytic anemia, unspecified (principal)
CPT/HCPCS: 36415; 80053; 85025

== ENCOUNTER 2025-02-02 16:56 | Outpatient (REF) | payer OTHER, SELFPAY ==
--- OUTSIDE RECORDS SUMMARY | 2025-02-02 16:58 | XMS_ITS | Clinical Summary ---
Author Organization [facility] Address [address] [place] [address] Care Team Providers Care Plant Protection Guard Name Role Phone Aarti Chung PA-C Primary Care Provider [phone] Source Comments PLEASE NOTE, if this patient is a minor, it may be UNLAWFUL to discuss sensitive information that is contained in these records (such as FAMILY PLANNING, MENTAL HEALTH or SUBSTANCE ABUSE) with the minor patient's parent or other person without the patient's specific authorization.[facility] Allergies No known active allergies Medications arm brace (WRIST BRACE)Indicatio ns:Bilateral carpal tunnel syndrome Dx:G56.03 Bilateral carpal tunnel syndrome. Wear daily for pain. Bilateral wrist brace. Indefinite need 2 Each 0 6 Active cyclobenzaprine (FLEXERIL) 5 mg tabletIndicatio ns:Arthritis Take 2 Tabs by mouth 2 (two) times daily as needed for muscle spasms 30 Tab 7 Active naproxen sodium (ANAPROX) 550 mg tabletIndicatio ns:Arthritis Take 1 Tab by mouth 2 (two) times daily as needed for other reason (pain) 60 Tab 2 7 Active ferrous sulfate 325 mg (65 mg iron) tabletIndicatio ns:Iron deficiency anemia, unspecified iron deficiency anemia type Take 1 Tab by mouth once daily with breakfast 30 Tab 5 7 Active senna-docusate (SENNA-S) 8.6-50 mg per tabletIndicatio ns:Iron deficiency anemia, unspecified iron deficiency anemia type Take 1 Tab by mouth once daily as needed for constipation 30 Tab 5 7 Active multivitamin tabletIndicatio ns:Iron deficiency anemia, unspecified iron deficiency anemia type Take 1 Tab by mouth once daily 30 Tab 11 7 Active diclofenac sodium (VOLTAREN) 1 % gelIndications: Recurrent pain of right knee Apply topically 2 (two) times daily 100 g 1 8 Active Active Problems Problem Noted Date Diagnosed Date History of meniscal tear 03/12/17 s/p repair 04/30 1702/20/2018 Overview (02/20/2018): 03/12/17 - R knee MRI: Impression: 1. Horizontal tear involving the anterior horn and body of the lateral meniscus. Large loculated parameniscal cyst within the lateral gutter. 2. Small radial tear of the body of the medial meniscus. 04/2017 - meniscal repair Decreased renal function 02/20/2018 History of abnormal mammogram Overview (04/29/2016): Breast surgeon Dr. Jean-Claude Quinonez MD [facility] [place] Macrocytosis Carpal tunnel syndrome Family History Medical History Relation Name Comments Cancer Father ENT Cancer Mother colon Diabetes Mother Heart Problems Mother Relation Name Status Comments Father Mother Social History Tobacco Use Types Packs/Day Years Used Date Smoking Tobacco: Every Day Cigarettes 0.5 36 Smokeless Tobacco: Never Tobacco Cessation:Ready to Q uit: Yes; Counseling Given: Yes Alcohol Use Standard Drinks/Week Comments Yes 0 (1 standard drink = 0.6 oz pur e alcohol) social Social Connections Answer Date Recorded Social Connections and Isolation 0 03/05/2019 Financial Resource Strain Answer Date R ecorded Financial Resource Strain 0 2018 Stress Answer Date Recorded Stress 0 03/05/2019 Physical Activity Answer Date Recorded Physical Activity 0 03/05/2019 Food Insecurity Answer Date Recorded Food 0 03/05/2019 Transportation Needs Answer Date Record ed Transportation 0 03/05/2019 Housing Stability Answer Date Recorded Housing 0 03/05/2019 Safety and Environment Answer Date Scott rded Safety 0 03/05/2019 Utilities Answer Date Recorded Utilities 0 03/05/2019 Employment Answer Date Recorded Employment 0 03/05/2019 Comments No Sex and Gender Information Value Date Recorded Sex Assigned at Female 02/10/2018 12:49 PM PDT Legal Sex Female 1:08 PM PDT Gender Identity Female 02/10/2018 12:49 PM PDT Sexual Orientation Straight 02/10/2018 12 :49 PM PDT Occupation Industry Job Start Date Job End Date [employer] Not on file Not on file Not on file Last Filed Vital Signs Vital Sign Reading Time Taken Comments Blood Pressure 110/80 02/10/2018 3:49 PM EDT Pulse 61 02/10/2018 3:49 PM EDT Temperature 36.9 C (98.5 F) 02/10/2018 3:49 PM EDT Respiratory Rate 18 02/10/2018 3:49 PM EDT Oxygen Saturation - - Inhaled Oxygen Concentration - - Weight 95.7 kg (211 lb) 02/10/2018 3:49 PM EDT Height 157.5 cm (5' 2 ) 05/25/2016 1:34 PM EST Body Mass Index 38.59 05/25/2016 1:34 PM EST Plan of Treatment Not on file Insurance [employer] Care Teams Plant Protection Guard Relationship Specialty Start Date End Date Aarti Chung PA-C [address] [place] [address] PCP - General Internal Medicine 11/25/17
[2025-02-06 09:33] LABS: Kappa/Lambda Lt Ch Free Ratio 0.50 (0.26-1.65)
== END 2025-02-02 16:57 | disposition home or self-care (01) ==
LOC: HO.LAB 16:56
PROVIDERS: Visit Provider Internal Medicine
DX: D58.9 Hereditary hemolytic anemia, unspecified (principal)
CPT/HCPCS: 36415; 82784; 83521; 86334; 86880

== ENCOUNTER 2025-05-01 15:32 | Outpatient (AMB) | payer OTHER, SELFPAY ==
--- NOTE | 2025-05-01 15:35 | MHC.PC.OV ---
Vital Signs 05/01/25 15:36 Height 5 ft 2 in Weight 215 lb 4 oz BMI 39.4 BP 102/60 Blood Pressure Location Lt brachial Position Sitting Respiration 18 Pulse 71 Pulse Source Pulse Oximeter Temp 97.5 F Temp Source Temporal Artery Scan Pulse Oximetry (%) 97 Oxygen Delivery Method Room Air Intake Visit Reasons: NEPTALI from [employer] Required: No Accompanied by: Self / Same As Patient Allergies No Known Allergies (No Known Allergies*) Allergy (Verified 05/01/25 16:15) Medication List - Last Reconciled 05/01/25 by ELIJAH Montoya albuterol sulfate 2.5 mg (3 mL) inhalation Q6H PRN 30 days albuterol sulfate 90 mcg/actuation 2 puffs inhalation Q6H PRN ferrous sulfate 325 mg PO DAILY pvskbmobosz-ycxfhljok-nkeuemot 100-62.5-25 mcg (Trelegy Ellipta) 1 inh inhalation DAILY 30 days folic acid 1 mg PO DAILY meloxicam 15 mg PO DAILY mycophenolate mofetil 500 mg PO BID omeprazole 20 mg PO BID ondansetron 8 mg PO Q8H PRN sennosides (Senokot) 8.6 mg PO BID umeclidinium-vilanterol 62.5-25 mcg/actuation (Anoro Ellipta) 1 inh inhalation DAILY Tobacco use date assessed: 05/01/25 Dental Screening Dental Screen Date: 05/01/25 Did you have a dental visit in the last 12 months?: Yes Did you have a dental problem in the last 6 months where you did not have access to dental care?: No Was dental information given to patient?: Patient has dentist HPI NEPTALI from [facility] HPI Details The patient is a 64-year-old female presenting with anemia, knee pain, and heartburn. She is also transferring care from Dr. Rothman, who retired. The patient has a history of anemia, which is currently being managed with regular follow-ups. She has been on umeclidinium-vilanterol 62.5-25 mcg/actuation and previously used tjsqbofrdgh-dkbiqogeg-puhrbwyw 100-62.5-25 mcg, which has been discontinued to the steroids. The patient reports persistent knee pain following surgery in 2019 for a torn meniscus and ACL from and accident. The meniscus was repaired, but the ACL was not, due to insurance limitations. She experiences daily pain and occasional swelling, which affects her mobility. The patient experiences heartburn, particularly after consuming certain foods and eating close to bedtime. She takes Prilosec in the morning and has been advised to adjust her medication regimen to include famotidine at night. The patient also reports tension headaches, which are managed with NSAIDs and lifestyle modifications such as hydration and magnesium supplementation. She has been advised to increase fluid intake and take vitamin B2 during the day. The patient has a history of diabetes, which is monitored with regular blood work. She is due for a colonoscopy and a Pap smear as part of her preventative care. Her vaccinations are up to date, including COVID-19, influenza, and tetanus. [facility] Medical History Morbid obesity Pneumonitis Multiple subsolid lung nodules greater than 6 mm in diameter Asthma-COPD overlap syndrome Personal history of nicotine dependence Obesity Tobacco dependence COPD (chronic obstructive pulmonary disease) AIHA (autoimmune hemolytic anemia) GERD (gastroesophageal reflux disease) Right knee meniscal tear Macrocytic anemia IgG lambda monoclonal gammopathy (~2006) Surgical History History of bone marrow biopsy (~2019) History of colonoscopy (~2016) History of lumpectomy of left breast (~2017) Family History Mother Colorectal cancer Father Lung cancer Brother Diabetes Sister Seizure disorder Other Mental health disorder Social History Household Members: Spouse Housing: House Are you a primary primary health care nurse to a significant other at home: No Do you presently have visiting nurse or other home services: No Alcohol intake: current Alcohol intake frequency: holidays/special occasions only Alcohol type: wine Patient Tobacco Use Status: Current everyday Tobacco user Tobacco use type: Cigarette Cigarette Packs Per Day: 0.5 Years Smoked: 44 (onset 17, 1/2-1ppd x 44yrs, 30pyh) e-Cigarette/Vaping Use: Never Used Second Hand Smoke Exposure: Yes service: No Current occupational status: employed Cognitive needs: No Hearing needs: No Vision needs: Yes (glasses) Questionnaire PHQ-9 Over the last 2 weeks, how often have you been bothered by any of the following problems? 1. Little interest or pleasure in doing things: nearly every day 2. Feeling down, depressed, or hopeless: not at all 3. Trouble falling or staying asleep, or sleeping too much: nearly every day 4. Feeling tired or having little energy: more than half the days 5. Poor appetite or overeating: more than half the days 6. Feeling bad about yourself - or that you are a failure or have let yourself or your family down: not at all 7. Trouble concentrating on things, such as reading the newspaper or watching television: not at all 8. Moving or speaking so slowly that other people could have noticed. Or the opposite - being so fidgety or restless that you have been moving around a lot more than usual: not at all 9. Thoughts that you would be better off or of hurting yourself in some way: not at all Total score: 10 Depression Screening Interpretation: Positive Depression Screening Done: Yes 03333 - PHQ-9 Billing: Yes Source: Developed by Drs. Uche Banegas, Leyda Valentin, Vijay Mcmillan and colleagues, with an educational jim from [employer]. Thrive Questionnaire Date Thrive assessed: 01/25/23 I am a: Patient What is your living situation today?: I have a place to live, but I am worried about losing it in the future Within the past 12 months, did the food you bought not last and you didn't have the money to get more?: I choose not to answer this question Within the past 12 months, did you worry whether your food would run out before you got money to buy more?: I choose not to answer this question Do you have trouble paying for medicines?: No Do you have trouble getting transportation to medical appointments?: No Do you have trouble paying your heating and electricity bill?: Yes Do you have trouble taking care of your child, family member or friend?: No Do you have trouble with day-to-day activities such as bathing, preparing meals, shopping, managing finances, etc.?: No Are you currently unemployed and looking for a job?: Yes Are you interested in more education?: Yes Please select the resources that you would like help with: Housing/Snf, Utilities, Job search/training and Education Currently or been in a relationship where the following occur: No concerns reported THRIVE Score: 2 AUDIT C Alcohol Use Questionnaire (AUDIT-C) 1. How often do you have a drink containing alcohol?: Monthly or less 2. How many drinks containing alcohol do you have on a typical day when you are drinking?: 3 or 4 3. How often do you have six or more drinks on one occasion?: Never Total Score: 2 JENNIE-7 AMB Questionnaire JENNIE-7 Date JENNIE - 7 assessed: 01/25/23 Feeling nervous, anxious, or on edge: 0 = Not at all Not being able to stop or control worryin = Nearly every day Worrying too much about different things: 3 = Nearly every day Trouble relaxin = Nearly every day Being so restless that it is hard to sit still: 0 = Not at all Becoming easily annoyed or irritable: 3 = Nearly every day Feeling afraid as if something awful might happen: 0 = Not at all Total JENNIE-7 score (0-4 normal; 5-9 mild; 10-14 moderate; 15-21 severe): 12 Source: Developed by Drs. Uche Banegas, Leyda Valentin, Vijay Mcmillan and colleagues, with an educational jim from [employer]. JENNIE-7 Assessment Billing JENNIE-7 Assessment Tool: JENNIE-7 Assessment 95428 Review of Systems Const Reports headache(s) (On and off) Eyes Denies loss of vision ENT Denies vertigo, Denies dizziness, Reports headache(s) (On and off), Reports nasal congestion and Denies sore throat Card Denies chest pain, Denies leg edema and Denies lightheadedness Resp Reports cough, Denies hemoptysis and Reports wheezing (Intermittent) GI Denies abdominal pain, Denies melena, Denies constipation, Reports heartburn (Depending on what she eats), Denies diarrhea and Denies vomiting Denies urinary frequency, Denies dysuria and Denies urinary urgency Musc Reports arthralgias (Right knee), Reports joint swelling (Right knee), Denies numbness and Denies tingling Neuro Denies Abnormal speech present, Denies behavioral changes, Denies vertigo, Denies dizziness, Reports headache(s) (On and off), Denies loss of vision, Denies memory loss, Denies numbness and Denies tingling Psych Denies anxiety, Denies behavioral changes, Denies depression, Denies memory loss and Denies panic attacks [place]/Lymph Denies easy bleeding and Denies easy bruising Aller/Immun Reports wheezing (Intermittent) Physical exam (Primary Care) Vital Signs: Last Vital Signs Temp 97.5 F 05/01/25 15:36 Pulse 71 05/01/25 15:36 Resp 18 05/01/25 15:36 BP 102/60 05/01/25 15:36 Pulse Ox 97 05/01/25 15:36 Oxygen Delivery Method Room Air 05/01/25 15:36 BMI result Body Mass Index 39.4 Tobacco/Smoking Status: Tobacco use Status Tobacco use date assessed 05/01/25 05/01/25 15:39 Patient Tobacco Use Status Current everyday Tobacco 05/01/25 15:39 Tobacco use type Cigarette 05/01/25 15:39 e-Cigarette/Vaping Use Never Used 05/01/25 15:39 PHQ-9: PHQ-9 Score PHQ-9: Total score 10 05/01/25 16:18 Depression Screening Interpretation: Positive Thrive Assessment: Date of Thrive Assessment Date Thrive assessed 01/25/23 05/01/25 15:39 Currently or been in a relationship where the following occur: No concerns reported Const General: healthy appearing, no acute distress, alert and awake Nutritional Appearance: well nourished Orientation/consciousness: oriented to person, oriented to place and oriented to time HENMT Ears: TM's normal bilaterally General nose exam: Normal nasal mucous membranes and turbinates present Eyes Conjunctivae: conjunctivae normal Sclerae: sclerae normal Pupils: Equal, round and reactive pupils present Neck Neck: Yes no lymphadenopathy and Yes no JVD Thyroid: Thyroid normal Carotids: no bruits Resp Effort & Inspection: normal respiratory effort and not tachypneic Auscultation: no crackles, no rales, no rhonchi and no wheezes Cardio Rate: regular rate Rhythm: regular rhythm Heart sounds: S1 normal heart sound present, S2 normal heart sound present, no murmurs and normal S1 and S2 GI Palpation (GI): Soft to palpation, nontender, no hepatomegaly and no splenomegaly Auscultation: normal bowel sounds General: Yes no CVA tenderness Back/Spine/Pelvis Back: no CVA tenderness Skin General skin exam: no rashes or lesions noted and dry skin Neuro General: oriented to person, oriented to place and oriented to time Cranial nerves: Yes Equal, round and reactive pupils present Speech: No Abnormal speech present Gait exam (Neuro): Normal gait present Motor exam (neuro): no tremor noted Extrem Right upper extremity: full ROM Left upper extremity: full ROM Right lower extremity: knee Details: tenderness Location: of the pre-patellar area and swelling Left lower extremity: full ROM; no edema Psych Mental Status: mental status grossly normal Speech and movement: Normal speech and movement present Affect: normal affect Attitude: cooperative Thought process: Normal thought process present Coding Level of Care Code Est Pt Level 4 (33329) Diagnoses Autoimmune hemolytic anemia D59.10 Hemolytic anemia type: unspecified autoimmune Chronic pain of right knee M25.561; G89.29 Chronicity: chronic Laterality: right Asthma-COPD overlap syndrome J44.9 Tobacco dependence F17.200 Chronic tension-type headache, not intractable G44.229 Intractability: not intractable Multiple subsolid lung nodules greater than 6 mm in diameter R91.8 Additional Codes PHQ-9 - 18684 - PHQ-9 Billing: Yes ([id number]) JENNIE-7 Assessment Billing - JENNIE-7 Assessment Tool: JENNIE-7 Assessment [id number] ([id number]) Time Spent (min) 41 Assessment & Plan Assessment & Plan (1) Hemolytic anemia: Code(s): D58.9 - Hereditary hemolytic anemia, unspecified Category: Medical Qualifiers: Hemolytic anemia type: unspecified autoimmune Qualified Code(s): D59.10 - Autoimmune hemolytic anemia, unspecified Plan: The patient has autoimmune anemia. H&H 11.1/34.3 continue mycophenolate mofetil 500mg bid, ferrous sulfate 325 mg daily Follow up with Hematology as scheduled (2) Knee pain: Code(s): M25.569 - Pain in unspecified knee Category: Medical Qualifiers: Chronicity: chronic Laterality: right Qualified Code(s): M25.561 - Pain in right knee; G89.29 - Other chronic pain Plan: The patient reports persistent knee pain following surgery in 2019 for a torn meniscus and ACL from and accident. The meniscus was repaired, but the ACL was not, due to insurance limitations. She experiences daily pain and occasional swelling, which affects her mobility. The patient will continue using meloxicam for pain management, with caution advised regarding kidney function. Consideration for further surgical intervention may be necessary if symptoms persist. (3) Asthma-COPD overlap syndrome: Code(s): J44.9 - Chronic obstructive pulmonary disease, unspecified Category: Medical Plan: Reports ongoing cough and intermittent chest tightening over two months. Reports that she has been using her inhalers to supplement on and off. Sputum has been getting thicker lately. Z-pack ordered. Continue umeclidinium-vilanterol 62.5-25 mcg 1 inhalation daily, albuterol sulfate inhaler as needed. Contact office symptoms persist. (4) Tobacco dependence: Comment: (current smoker, 1/2-1ppd x 43yrs, 30PYH, +fam hx lung ca) Code(s): F17.200 - Nicotine dependence, unspecified, uncomplicated Category: Medical Plan: Smoking cessation (5) Chronic tension headaches: Code(s): G44.229 - Chronic tension-type headache, not intractable Category: Medical Qualifiers: Intractability: not intractable Qualified Code(s): G44.229 - Chronic tension-type headache, not intractable Plan: Lifestyle changes for acute onset or preventative headache Consistent sleeping time, at least 8 hours a night Regularly scheduled meals and between meal snacks Adequate fluid intake to prevent dehydration, especially with high intensity sports/activity Keep headache diary to try to pinpoint triggers Start magnesium oxide 400 mg at bedtime and vitamin B2 400 mg daily Continue OTC headache medication as needed (6) Multiple subsolid lung nodules greater than 6 mm in diameter: Code(s): R91.8 - Other nonspecific abnormal finding of lung field Category: Medical Plan: Longstanding smoking history. CT scan of the chest showed some areas of ground-glasss denisities some of the minute nodular form in the right upper lobe and left lower areas. Suspected to to be related to interstitial lung disease related to smoking. Smoldering malignancies were also in the differential. The patient was considered to have a RADS [address] scan and will require annual CT monitoring. Orders: Orders Glucose Fasting 05/01/25 D58.9 - Hereditary hemolytic anemia, unspecified, E66.01 - Morbid (severe) obesity due to excess calories, J44.9 - Chronic obstructive pulmonary disease, unspecified, R03.0 - Elevated blood-pressure reading, without diagnosis of hypertension, R06.02 - Shortness of breath Comprehensive [place]. Panel Fast 05/01/25 D58.9 - Hereditary hemolytic anemia, unspecified, E66.01 - Morbid (severe) obesity due to excess calories, J44.9 - Chronic obstructive pulmonary disease, unspecified, R03.0 - Elevated blood-pressure reading, without diagnosis of hypertension, R06.02 - Shortness of breath TSH reflex Free T4 05/01/25 D58.9 - Hereditary hemolytic anemia, unspecified, E66.01 - Morbid (severe) obesity due to excess calories, J44.9 - Chronic obstructive pulmonary disease, unspecified, R03.0 - Elevated blood-pressure reading, without diagnosis of hypertension, R06.02 - Shortness of breath Lipid Panel 05/01/25 D58.9 - Hereditary hemolytic anemia, unspecified, E66.01 - Morbid (severe) obesity due to excess calories, J44.9 - Chronic obstructive pulmonary disease, unspecified, R03.0 - Elevated blood-pressure reading, without diagnosis of hypertension, R06.02 - Shortness of breath Referrals CHILD AND YOUTH PROGRAM ASSISTANT Referral Z01.419 - Encounter for gynecological examination (general) (routine) without abnormal findings, Z12.4 - Encounter for screening for malignant neoplasm of cervix Gastroenterology Referral Z12.11 - Encounter for screening for malignant neoplasm of colon, Z12.12 - Encounter for screening for malignant neoplasm of rectum Medications: New omeprazole 40 mg PO DAILY 30 caps 3RF famotidine 40 mg PO BEDTIME 30 tabs 3RF magnesium oxide 400 mg PO BEDTIME 90 tabs 3RF riboflavin (vitamin B2) 400 mg PO DAILY 90 tabs 3RF azithromycin For 250 mg dose pack: take 500 mg today (day 1), then 250 mg for 4 days (days 2-5) PO 6 tabs 0RF Refilled meloxicam 15 mg PO DAILY 30 tabs 0RF
[2025-05-01 15:36] VITALS: BP 102/60; PULSE 71; RESP 18; TEMP 36.4; O2SAT 97; BMI 39.4
== END 2025-05-01 16:39 | disposition home or self-care (01) ==
LOC: HO.HMCH 15:33
DX: D59.10 Autoimmune hemolytic anemia, unspecified (principal); M25.561 Pain in right knee; G89.29 Other chronic pain; J44.9 Chronic obstructive pulmonary disease, unspecified; F17.200 Nicotine dependence, unspecified, uncomplicated; G44.229 Chronic tension-type headache, not intractable; R91.8 Other nonspecific abnormal finding of lung field

== ENCOUNTER → 2025-05-01 15:32 | Outpatient (BNVA) | payer OTHER, SELFPAY | DX: D59.10 Autoimmune hemolytic anemia, unspecified (principal); M25.561 Pain in right knee; G89.29 Other chronic pain; J44.9 Chronic obstructive pulmonary disease, unspecified; G44.229 Chronic tension-type headache, not intractable; R91.8 Other nonspecific abnormal finding of lung field; F17.210 Nicotine dependence, cigarettes, uncomplicated; Z79.899 Other long term (current) drug therapy; Z13.31 Encounter for screening for depression | CPT/HCPCS: 96127; 99212 ==

== ENCOUNTER 2025-05-16 10:18 | Outpatient (REF) | payer OTHER, SELFPAY ==
[2025-05-16 11:30] LABS: Alanine Aminotransferase 27 U/L (0-31); Albumin Level 4.2 g/dL (3.5-5.0); Alkaline Phosphatase 121 U/L (39-117); Anion Gap 8 (12-20); Aspartate Amino Transferase 20 U/L (5-31); Blood Urea Nitrogen 19 mg/dL (9-16); Calcium 9.1 mg/dL (8.4-10.2); Carbon Dioxide 28 mmol/L (22-29); Chloride 110 mmol/L (96-108); Cholesterol 180 mg/dL (<200); Estimated Glomerular Filt Rate 52; HDL Cholesterol 43 mg/dL (>40); Potassium 4.5 mmol/L (3.3-5.1); Sodium 141 mmol/L (135-145); Total Protein 7.8 g/dL (6.5-8.0); Triglycerides 170 mg/dL (<150)
--- OUTSIDE RECORDS SUMMARY | 2025-05-16 11:55 | XMS_ITS | Clinical Summary ---
Author Organization [facility] Address [address] [place] [address] Care Team Providers Care Customer Success Representative Name Role Phone Aarti Chung PA-C Primary Care Provider [phone] Source Comments PLEASE NOTE, if this patient [...] (04/29/2016): Breast surgeon Dr. 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
== END 2025-05-16 10:19 | disposition home or self-care (01) ==
LOC: HO.LAB 10:18
DX: R06.02 Shortness of breath (principal); J44.9 Chronic obstructive pulmonary disease, unspecified; R03.0 Elevated blood-pressure reading, without diagnosis of hypertension; E66.01 Morbid (severe) obesity due to excess calories; D58.9 Hereditary hemolytic anemia, unspecified
CPT/HCPCS: 36415; 80053; 80061; 84443